=== PATIENT | female | born 2000 | race Two or more races ===

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

== ENCOUNTER 2019-10-14 20:42 | Emergency (ER) | payer MEDICAID ==
[~2019-10-14] VITALS: Ht 167.6 cm; Wt 60.0 kg
[~2019-10-14 20:42] MED LIST: ALBU8HFA IH; LITH300C3 PO
[2019-10-14] MEDS ORDERED: ADV250 IH (20:57)
[2019-10-14 23:38] VITALS: BP 103/64
== END 2019-10-15 00:04 | disposition home or self-care (01) ==
LOC: EMS 20:42
DX: R05 Cough (principal); R06.00 Dyspnea, unspecified; R07.9 Chest pain, unspecified
CPT/HCPCS: 93005

== ENCOUNTER 2020-06-20 14:31 | Emergency (ER) | payer MEDICAID, OTHER ==
[~2020-06-20] VITALS: Ht 167.6 cm; Wt 59.1 kg
[~2020-06-20 14:31] MED LIST changes: +FLUT1DIS6 IH; -LITH300C3 PO
[2020-06-20] MEDS ORDERED: IBUPROFEN 400 MG TABLET PO ONE (15:00)
[2020-06-20 15:16] VITALS: BP 112/67
== END 2020-06-20 16:13 | disposition home or self-care (01) ==
LOC: EMS 14:31
DX: T71.9XXA Asphyxiation due to unspecified cause, initial encounter (principal); S10.93XA Contusion of unspecified part of neck, initial encounter; J45.909 Unspecified asthma, uncomplicated; Z88.8 Allergy status to other drugs, medicaments and biological substances; W50.0XXA Accidental hit or strike by another person, initial encounter; Y93.89 Activity, other specified; Y92.89 Other specified places as the place of occurrence of the external cause; Y99.8 Other external cause status
CPT/HCPCS: 99282; Z7502; Z7610